=== PATIENT | male | born 1935 | race Caucasian/White ===

== ENCOUNTER 2017-05-05 06:58 | Inpatient (IN) | payer OTHER ==
[2017-04-23 09:29] VITALS: BMI 22.0
--- NOTE | 2017-04-23 10:02 | PAT Medication Instructions ---
Service Date Apr 23, 2017. Current Home Medication List No Active Prescriptions or Reported Meds Medication Instructions For Your Scheduled Surgery No Active Prescriptions or Reported Meds- Please contact PAT department if any new medications prior to surgery. If you have any questions please call us at [phone] or [phone] or [phone]
--- NOTE | 2017-04-23 10:49 | DIAGNOSTIC IMAGING REPORT ---
CHEST PREADMISSION(PA/LAT) CLINICAL HISTORY: Preoperative evaluation. COMPARISON STUDY: Chest radiograph July 08, 2015. FINDINGS: Lumbar spine fusion hardware is partially imaged on this exam. Mild elevation of the left hemidiaphragm has increased since prior exam. No pneumothorax or pleural effusion is present. There is no evidence of pulmonary edema. There is no consolidation. Cardiomediastinal silhouette is normal. IMPRESSION: 1. No acute cardiopulmonary findings. 2. Mild elevation of the left hemidiaphragm. Electronically signed by: Leander Hernández M.D. 04/23/2017 10:47 AM Dictated Date/Time: 04/23/2017 10:46 AM
[2017-04-23 10:58] LABS: BASO % 0.3 %; BASO ABS # 0.02 K/uL (0-0.2); COMPLETE YES; EOS % 0.9 %; HEMATOCRIT 42.6 % (42-52); IG% 0.3 %; LYMPH % 22.2 %; LYMPH ABS # 1.47 K/uL (1.2-3.4); MEAN CELL VOLUME 85.7 fL (80-100); MEAN CORPUSCULAR HEMOGLOBIN 28.4 pg (25-34); MEAN CORPUSCULAR HGB CONC 33.1 g/dl (32-36); MEAN PLATELET VOLUME 9.6 fL (7.4-10.4); MONO % 12.5 %; NEUT % 63.8 %; PLATELET COUNT 253 K/uL (130-400); RED BLOOD COUNT 4.97 M/uL (4.7-6.1); WHITE BLOOD COUNT 6.62 K/uL (4.8-10.8)
[2017-04-23 11:01] LABS: URINE APPEARANCE CLEAR (CLEAR); URINE BILIRUBIN NEG (NEG); URINE COLOR YELLOW; URINE NITRITE NEG (NEG); URINE PH 6.5 (4.5-7.5); URINE SPECIFIC GRAVITY 1.013 (1.000-1.030); UROBILINOGEN NEG (NEG); ZZUR CULT IF INDIC CLEAN CATCH NO
[2017-04-23 11:03] LABS: MANUAL MICROSCOPIC REQUIRED? NO; REVIEW REQ? NO
[2017-04-23 11:24] LABS: PARTIAL THROMBOPLASTIN RATIO 1.1; PROTHROMBIN TIME (PATIENT) 10.7 SECONDS (9.0-12.0)
[2017-04-23 12:02] LABS: ESTIMATED AVERAGE GLUCOSE 128 mg/dl; HA1C FLAG Normal (Normal)
[2017-04-23 12:38] LABS: CALCIUM 8.7 mg/dl (8.5-10.1); CREATININE 0.88 mg/dl (0.60-1.40)
--- NOTE | 2017-05-04 17:27 | History and Physical ---
History & Physical Date May 04, 2017. Chief Complaint Patient presents with severe end-stage DJD right knee for right total knee arthroplasty after failing attempts at conservative management including physical therapy anti-inflammatories relative rest activity modification and injections presents for right total knee arthroplasty History of Present Illness The patient is a 81 year old male with complaints of severe end-stage DJD right knee presents for right total knee Orthoplast after failing attempts at conservative management Past Medical/Surgical History Medical Problems: (1) DDD (degenerative disc disease) Allergies Coded Allergies: No Known Allergies (Unverified , 04/23/17) Home Medications No Active Prescriptions or Reported Meds Physical Examination Skin: warm/dry, no rash ENT: normal ENT inspection, pharynx normal Head: normocephalic, atraumatic Respiratory/Chest: lungs clear, normal breath sounds, no respiratory distress Cardiovascular: regular rate, rhythm, no edema, no murmur Abdomen / GI: normal bowel sounds, non tender Back: normal inspection Extremities: + pertinent finding (severe DJD right knee plan plan for right total knee arthroplasty)
[~2017-05-05] VITALS: Ht 177.8 cm; Wt 71.3 kg
[2017-05-05] VITALS (8 sets, daily range): BP systolic 98–135; BP diastolic 57–79; PULSE 69–88; TEMP 35.7–36.5; O2SAT 92–100; Ht 177.8 cm; Wt 71.3 kg
[2017-05-05] MEDS: TRANEXAMIC ACID INJ 1,000 MG in SODIUM CHLORIDE 0.9% 100ML 100 ML IV SCH ×2 (06:30→09:30)
[~2017-05-05 06:58] MED LIST: ACETAMINOPHEN 500 MG TAB PO SCH; BUPIVACAINE 0.25% 30 ML VIAL ONE; BUPIVACAINE 0.5 % 5 MG/1 ML PF 10ML VIAL ONE; CEFAZOLIN 1000MG/55 ML D5W 55 ML IV SCH; CeleBREX 200 MG CAP PO SCH; DEXAMETHASONE 4 MG TAB PO SCH; FAMOTIDINE 20 MG TAB PO SCH; GABAPENTIN 300 MG CAP PO SCH; LACTATED RINGER'S 1000ML 1,000 ML IV SCH; LACTATED RINGER'S 1000ML 500 ML IV ONE; LACTATED RINGER'S 1000ML IV SCH; METOCLOPRAMIDE HCL 10 MG TAB PO SCH; ROPIVACAINE 5MG/ML 30 ML 150 MG, BUPIVACAINE/EPINEPHR 0.5% MPF 30 ML, KETOROLAC TROMETH... INFIL SCH
--- NOTE | 2017-05-05 07:03 | History & Physical Bridge Note ---
H&P Re-Evaluation Bridge Note: I have examined the patient, reviewed the History & Physical and in the interval since the performance of the History & Physical I have noted the following changes of clinical significance: No changes noted
[2017-05-05] MEDS ORDERED: FENTANYL CITRATE INJ 50 MCG/1 ML 2 ML VIAL ONE (08:17)
[2017-05-05] MEDS ORDERED: MIDAZOLAM HCL 1 MG/ML 2ML VIAL ONE (08:17)
[2017-05-05] MEDS ORDERED: LIDOCAINE HCL 2% 2 ML VIAL (20MG/ML) ONE (08:43)
[2017-05-05] MEDS ORDERED: PROPOFOL IV EMULSION 10 MG/ML 20 ML VIAL IV ONE (08:43)
[2017-05-05] MEDS ORDERED: ONDANSETRON INJ 2 MG/ML 2 ML VIAL ONE (08:43)
[2017-05-05] MEDS ORDERED: ORTHO JOINT ANESTHETIC ONE (09:11)
[2017-05-05] MEDS ORDERED: POVIDONE-IODINE OP SOLN 30 ML BTL ONE (09:12)
[2017-05-05] MEDS ORDERED: BACITRACIN 50000 UNIT VIAL ONE (09:12)
[2017-05-05] MEDS ORDERED: ATROPINE SULFATE 0.1 MG/ML 5ML SYR IV PRN (11:00)
[2017-05-05] MEDS ORDERED: EpHEDrine SULFATE INJ 50 MG/ML AMP IV PRN (11:00)
[2017-05-05] MEDS ORDERED: ONDANSETRON INJ 2 MG/ML 2 ML VIAL IV PRN ×2 (11:00→12:45)
[2017-05-05] MEDS ORDERED: HYDROmorphone INJ 1 MG/ML SYR IV PRN (11:00)
[2017-05-05] MEDS ORDERED: MEPERIDINE HCL 25 MG/ML CARP IV PRN (11:00)
[2017-05-05] MEDS ORDERED: LABETALOL HCL IV 5 MG/ML 20ML IV PRN (11:00)
[2017-05-05] MEDS ORDERED: FENTANYL CITRATE INJ 50 MCG/1 ML 2 ML VIAL IV PRN (11:00)
[2017-05-05] MEDS ORDERED: PHENYLEPHRINE 100MCG/ML 5ML SYR ONE (11:07)
--- NOTE | 2017-05-05 11:47 | [facility] Operative Report ---
Operative Report Operative Date May 05, 2017. Pre-Operative Diagnosis Right Knee Degenerative Joint Disease Post-Operative Diagnosis Same as preop Procedure(s) Performed Right Total Knee Arthroplasty utilizing Plasencia & Nephew journey 2 patient matched total knee arthroplasty size 6 femur 6 tibia Poly-[address] Marie Electric Meter Reader Surgeon(s) Kalpesh Hutson PA-C Estimated Blood Loss 5 ml Findings Severe end-stage DJD varus alignment subchondral cystic formation unresponsive conservative therapy including physical therapy anti-inflammatories relative rest activity modification corticosteroid injections Specimens A. Right Knee Bone and Tissue Disposition Recovery Room / PACU Indications Severe end-stage DJD subchondral sclerosis subchondral cystic changes varus alignment with on the bone changes patellofemoral medial compartment noted. Description of Procedure After proper prepping and draping of the Right lower extremity anterior midline incision was made over the region of the extensor extensor mechanism after meticulous hemostasis was obtained and maintained in subcutaneous tissues a medial parapatellar incision was made The patella was subluxed lateralward the medial lateral gutter were cleaned from any hypertrophic synovitis and scar tissue of the distal femoral block was placed and the distal femoral osteotomy cut was made subsequently the chamfers anterior and posterior osteotomy cuts were made utilizing the 4-in-1 block the tibia was subsequently subluxed anteriorward medial and ateral meniscal remnants were excised in their entirety remnants of the anterior and posterior cruciate ligaments were excised in their entirety excellent exposure of the proximal tibia was obtained the tibial osteotomy guide was placed on the proximal tibial osteotomy cut was made once again the knee was irrigated with copious amounts of sterile saline solution the patella was subsequently everted lateralward thickened scar tissue around the patella was removed the patella was subsequently cut utilizing a freehand technique and was drilled prepared for final preparation and placement of patella socially flexion-extension gaps were checked and the equal and symmetric trials were placed to the appropriate femoral and tibial trials with poly-spacer being placed for equal flexion and extension gaps and full range of motion including extension to 0 and flexion to 140 the trial components after having been taken to recovery range of motion was subsequently removed meticulous hemostasis was obtained and maintained subsequently a knee block injection of joint cocktail including ropivacaine 0.5% 150 mg. Bupivacaine 0.5 % epinephrine 1-200,030 mL's toradol 30 mg dexamethasone 4 mg ketamine 10 mg clonidine 100 micrograms normal saline solution 30 mg was infiltrated into the soft tissues of the posterior knee medial lateral gutters and periosteal synovium special attention was paid to protect neurovascular structures at all times subsequently trial components having been removed the knee was irrigated with sterile saline solution. debris was removed the proximal tibia was subsequently prepared and was made ready for the placement of the tibial component tibial component was also cemented and tamped into position the femoral component was subsequently placed and cemented in the position the patellar component was subsequently cemented in position because hemostasis once again obtained and maintained wound having been thoroughly irrigated with debridement and debridement lavage was performed as well as a medial parapatellar incision closed with #1 Vicryl in interrupted fashion subcutaneous was closed with #2 Vicryl skin was closed with skin clips. PA-C was necessary for prepping and drapping as well as wound closure of deep fascia Sub cutaneous tissue and skin and was necessary for the case. A sterile compressive dressing was placed patient was taken to recovery in stable condition of report dictated by Frank I attest to the content of the Intraoperative Record and any orders documented therein. Any exceptions are noted below. I attest to the content of the Intraoperative Record and any orders documented therein. Any exceptions are noted below.
[2017-05-05] MEDS ORDERED: KETOROLAC TROMETHAMINE 15 MG/ML VIAL IV. PRN (12:45)
[2017-05-05] MEDS ORDERED: SOD PHOSPHATE/SOD BIPHOSPHATE ENEMA 132 ML BTL PR PRN (12:45)
[2017-05-05] MEDS ORDERED: BISACODYL 10 MG SUPP PR PRN (12:45)
[2017-05-05] MEDS ORDERED: ZOLPIDEM TARTRATE 5 MG TAB PO PRN (12:45)
[2017-05-05] MEDS ORDERED: MoRPHine SULFATE 2 MG/ML CARP IV PRN (12:45)
[2017-05-05] MEDS ORDERED: ALUMINUM/MAGNESIUM/SIMETH (MAALOX MAX) 30 ML UDC PO PRN (12:45)
[2017-05-05] MEDS ORDERED: MAGNESIUM HYDROXIDE SUSP 30 ML UDC PO PRN (12:45)
--- NOTE | 2017-05-05 13:28 | DIAGNOSTIC IMAGING REPORT ---
RIGHT KNEE 1 OR 2 VIEWS ROUTINE CLINICAL HISTORY: AP/LATERAL IN PACU RIGHT KNEE Right joint replacement COMPARISON: None. DISCUSSION: Right total knee arthroplasty. Good contact between prosthetic and underlying bone. Surgical drains are in position. Expected soft tissue postoperative change. IMPRESSION: Anatomic alignment status post total right knee arthroplasty. The above report was generated using voice recognition software. It may contain grammatical, syntax or spelling errors. Electronically signed by: Kalpesh Pena M.D. 05/05/2017 1:27 PM Dictated Date/Time: 05/05/2017 1:26 PM
--- NOTE | 2017-05-05 13:41 | Anesthesiology Progress Note ---
Anesthesia Post Op Note Date & Time May 05, 2017 at 13:40 Vital Signs Pain Intensity: 0 Vital Signs Past 12 Hours Date Time Temp Pulse Resp B/P (MAP) Pulse Ox O2 Delivery O2 Flow Rate FiO2 05/05/17 13:25 36.7 81 16 97/62 97 Nasal Cannula 2 05/05/17 13:10 81 16 99/65 97 Nasal Cannula 2 05/05/17 13:00 83 16 94/64 97 Nasal Cannula 2 05/05/17 12:50 82 16 99/61 98 Oxymask 10 05/05/17 12:40 81 16 94/61 99 Oxymask 10 05/05/17 12:32 36.8 83 16 100/61 99 Oxymask 10 05/05/17 08:13 36.5 77 18 135/77 96 Room Air Notes Mental Status: alert / awake / arousable, participated in evaluation Pt Amnestic to Procedure: Yes Nausea / Vomiting: adequately controlled Pain: adequately controlled Airway Patency, RR, SpO2: stable & adequate BP & HR: stable & adequate Hydration State: stable & adequate Neuraxial Anesthesia: was administered, sensory block is resolving Anesthetic Complications: no major complications apparent
[2017-05-05] MEDS ORDERED: MoRPHine SULFATE 4 MG/ML 1 ML CARP\\VIAL IV PRN (14:00)
[2017-05-05] MEDS ORDERED: MoRPHine SULFATE 10 MG/ML CARP/VIAL IV PRN (14:00)
[2017-05-05] MEDS: ACETAMINOPHEN 500 MG TAB PO SCH ×2 (14:52→21:42)
[2017-05-05] MEDS: D5W AND 1/2NSS + 20MEQ KCL 1,000 ML IV SCH (14:52)
[2017-05-05] MEDS: CEFAZOLIN IV 1,000 MG in DEXTROSE 5% 50ML 50 ML IV SCH (18:35)
[2017-05-05] MEDS: ASPIRIN 81 MG ECTAB PO SCH (20:45)
[2017-05-05] MEDS: OXYCODONE HCL 10 MG TABCR (OXYCONTIN) PO SCH (20:45)
[2017-05-05] MEDS: DOCUSATE SODIUM 100 MG CAP PO SCH (20:45)
[2017-05-05] MEDS: SENNA 8.6 MG TAB PO SCH (20:46)
[2017-05-06] VITALS (7 sets, daily range): BP systolic 94–122; BP diastolic 54–72; PULSE 59–73; TEMP 36.4–36.9; O2SAT 94–97
[2017-05-06] MEDS: D5W AND 1/2NSS + 20MEQ KCL 1,000 ML IV SCH ×2 (00:12→11:28)
[2017-05-06] MEDS: CEFAZOLIN IV 1,000 MG in DEXTROSE 5% 50ML 50 ML IV SCH (01:47)
[2017-05-06 05:52] LABS: MEAN CELL VOLUME 86.4 fL (80-100); MEAN CORPUSCULAR HGB CONC 32.4 g/dl (32-36); MEAN PLATELET VOLUME 9.5 fL (7.4-10.4); PLATELET COUNT 239 K/uL (130-400); WHITE BLOOD COUNT 14.19 K/uL (4.8-10.8)
[2017-05-06] MEDS: ACETAMINOPHEN 500 MG TAB PO SCH ×3 (05:57→21:50)
[2017-05-06 06:01] LABS: PROTHROMBIN TIME (PATIENT) 11.1 SECONDS (9.0-12.0)
[2017-05-06 06:27] LABS: BUN/CREATININE RATIO 17.9 (10-20); CALCIUM 8.2 mg/dl (8.5-10.1); POTASSIUM 4.2 mmol/L (3.5-5.1)
--- NOTE | 2017-05-06 06:52 | Orthopedic Progress Note ---
Orthopedic Progress Note Date of Service May 06, 2017. Subjective Post OP Day: 1 (s/p Right TKA) Reports: feeling well, pain controlled w PO medications, Denies: complaints, chest pain, SOB, nausea / vomiting, light headedness, calf pain Objective calves soft nontender, N/V intact, capillary refill less than 2 sec., dressing C /D/I, A&O x3, toes mobile, hemovac drainage (125cc/8 hours) Date Time Temp Pulse Resp B/P (MAP) Pulse Ox O2 Delivery O2 Flow Rate FiO2 05/06/17 03:14 36.6 73 16 96/54 (68) 96 Room Air 05/06/17 00:05 Room Air 05/05/17 23:17 36.5 69 16 114/71 (85) 92 Room Air 05/05/17 18:26 35.7 88 18 122/79 (93) 96 Room Air 05/05/17 15:45 36.3 79 16 102/64 (77) 100 Nasal Cannula 2.0 05/05/17 15:30 Nasal Cannula 2.0 05/05/17 14:44 71 18 111/67 (82) 98 Nasal Cannula 2.0 05/05/17 14:15 70 16 100/62 (75) 96 Nasal Cannula 2.0 05/05/17 14:12 96 Nasal Cannula 2.0 05/05/17 14:06 96 Nasal Cannula 2.0 05/05/17 13:45 36.5 81 18 98/57 (71) 96 Nasal Cannula 2.0 05/05/17 13:25 36.7 81 16 97/62 97 Nasal Cannula 2 05/05/17 13:10 81 16 99/65 97 Nasal Cannula 2 05/05/17 13:00 83 16 94/64 97 Nasal Cannula 2 05/05/17 12:50 82 16 99/61 98 Oxymask 10 05/05/17 12:40 81 16 94/61 99 Oxymask 10 05/05/17 12:32 36.8 83 16 100/61 99 Oxymask 10 05/05/17 08:13 36.5 77 18 135/77 96 Room Air Laboratory Results 24 Hours: Test 05/06/17 05:39 Hematocrit 38.0 % Hemoglobin 12.3 g/dL Prothromb Time International Ratio 1.0 Prothrombin Time 11.1 SECONDS Assessment & Plan Assessment: POD #1 s/p Right TKA -pt/ot -dvt proph with [facility]/scd/asa -plan for d/c home with HHPT when stable Discharge Planning Discharge Planning: home with home health DVT Prophylaxis: TEDs, SCDs, ASA Therapy: Physical Therapy
--- NOTE | 2017-05-06 06:53 | Discharge Instructions ---
Discharge Instructions Date of Service May 06, 2017. Admission Reason for Admission: Right Knee Osteoarthritis Discharge Discharge Diagnosis / Problem: right total knee replacement Discharge Goals Goal(s): Decrease discomfort, Improve function, Increase independence Activity Recommendations Activity Limitations: as noted below Weightbearing Status: Right weightbearing (as tolerated) . Instructions / Follow-Up Instructions / Follow-Up ACTIVITY RECOMMENDATIONS: SELF CARE INSTRUCTIONS AFTER TOTAL KNEE REPLACEMENT A. You may need to continue a physical therapy program after discharge from the hospital. There are several options available to you. Your doctor will assist you in selecting the best one for you. 1. An out-patient facility 2 to 3 times a week for therapy or home therapy. 2. Continue working on all exercises taught to you in the hospital. Your goals should be to increase bending of your knee to 90 degrees and beyond and to fully straighten your knee. B. You may progress at your own pace from walking with a walker or crutches to a cane; then to no assistive devices. C. Make walking a part of your daily routine. Be up as much as comfortable with rest periods throughout the day. Rest with leg elevation is very important. Use the ice wrap frequently for the first 3-4 weeks. D. There are no restrictions on activities. You may ride in a car, shop, participate in oil field tester and all social activities. E. Wear the long elastic stockings (SHERYL hose) 20 hours a day for 2 weeks after surgery. They can be removed several times a day for laundering and for a bath. F. You may shower, no tub baths until cleared by your doctor. SPECIAL CARE INSTRUCTIONS: VERY IMPORTANT TO READ AND REVIEW A. There are a few signs you need to watch for after you are home. Call [facility] if you notice any of the followin. Increased severe knee pain. Some pain is expected especially when you exercise. 2. Increased swelling in your leg or knee; pain or swelling of the calf muscle in either lower leg. 3. Any fluid drainage from the incision. 4. Shortness of breath or chest pain. B. Please call [facility] at if you have any concerns or questions about your operation or recovery. The doctor or his nurse will return your call promptly. C. You must take antibiotics before dental work, bladder, bowel or other surgery. Your doctor will provide you with a permanent care to carry describing this precaution. IMPORTANT: * REMEMBER TO TAKE ASPIRIN, 81 MG, TWICE DAILY FOR 4 WEEKS UNLESS OTHERWISE DIRECTED. THIS IS YOUR BLOOD THINNER. * HIGH RISK PATIENTS MAY BE PRESCRIBED A STRONGER BLOOD THINNER. THIS WILL BE PROVIDED AT DISCHARGE. * CALL IF INCREASED PAIN, REDNESS, DRAINAGE OR FEVER GREATER THAT 101. * WEAR SHERYL HOSE 20 HOURS PER DAY FOR 2 WEEKS. * DERMABOND Prineo- This is a mesh tape dressing that is covered with glue. It should remain in place until the incision is properly healed, usually 10-14 days. This dressing is designed to naturally slough off. You may trim the excess mesh tape as it peels off. Incision may be briefly wet in a shower. Dry immediately by blotting with a clean, dry towel. Do not bath or swim until instructed by your doctor. Do not scratch, rub, or pick at the dressing. Do not apply any topical ointments or lotions until dressing is completely removed and/or instructed by your doctor. There may be a small piece of suture material at one end of your incision. Do not pull or trim this. If it is bothersome or catching on clothing, you may cover it with a band-aid. FOLLOW UP VISIT: If appointment is not already scheduled: Please call [facility] to make a follow-up appointment for 2 weeks after your surgery at . Current Hospital Diet Patient's current hospital diet: Regular Diet Discharge Diet Recommended Diet: Regular Diet Procedures Procedures Performed: Right Total Knee Arthroplasty utilizing Plasencia & Nephew journey 2 patient matched total knee arthroplasty size 6 femur 6 tibia Poly-35 oval patella Pending Studies Studies pending at discharge: no Laboratory Results Hemoglobin A1c Test 04/23/17 10:09 Range/Units Estimated Average Glucose 128 mg/dl Hemoglobin A1c 6.1 H 4.5-5.6 % Medical Emergencies . Who to Call and When: Medical Emergencies: If at any time you feel your situation is an emergency, please call 911 immediately. . Non-Emergent Contact Non-Emergency issues call your: Primary Care Provider, Surgeon . "Provider Documentation" section prepared by Kalpesh Hutson. . VTE Core Measure Inpt VTE Proph given/why not?: Other Anticoagulation (ASA 81mg po bid x 1 month ), TSil [place], SCD's [place] Drug Monitoring Program Search Results: patient reviewed within database, no issues identified
[2017-05-06] MEDS: MULTIVITAMIN TAB PO SCH (08:54)
[2017-05-06] MEDS: DOCUSATE SODIUM 100 MG CAP PO SCH ×2 (08:54→20:42)
[2017-05-06] MEDS: ASPIRIN 81 MG ECTAB PO SCH ×2 (08:54→20:42)
[2017-05-06] MEDS: PANTOprazole SOD 40 MG TAB PO SCH (08:54)
[2017-05-06] MEDS: OXYCODONE HCL 10 MG TABCR (OXYCONTIN) PO SCH ×2 (08:54→20:43)
--- NOTE | 2017-05-06 09:23 | Anesthesiology Progress Note ---
Anesthesia Post Op Note Date & Time May 06, 2017 at 09:23 Vital Signs Pain Intensity: 1.0 Vital Signs Past 12 Hours Date Time Temp Pulse Resp B/P (MAP) Pulse Ox O2 Delivery O2 Flow Rate FiO2 05/06/17 08:53 64 113/71 (85) 05/06/17 08:00 96 Room Air 05/06/17 07:03 36.4 59 16 94/56 (69) 97 Room Air 05/06/17 03:14 36.6 73 16 96/54 (68) 96 Room Air 05/06/17 00:05 Room Air 05/05/17 23:17 36.5 69 16 114/71 (85) 92 Room Air Notes Mental Status: alert / awake / arousable, participated in evaluation Pt Amnestic to Procedure: Yes Nausea / Vomiting: adequately controlled Pain: adequately controlled Airway Patency, RR, SpO2: stable & adequate BP & HR: stable & adequate Hydration State: stable & adequate Neuraxial Anesthesia: sensory block resolved Anesthetic Complications: no major complications apparent
[2017-05-06] MEDS: OXYCODONE HCL IR 5 MG TAB (IMMEDIATE RELEASE) PO PRN ×2 (16:15→20:12)
[2017-05-06] MEDS: CeleBREX 200 MG CAP PO SCH (20:41)
[2017-05-06] MEDS: SENNA 8.6 MG TAB PO SCH (21:04)
[2017-05-07] MEDS: ACETAMINOPHEN 500 MG TAB PO SCH ×2 (05:40→14:11)
[2017-05-07 06:41] VITALS: BP 117/69; PULSE 82; TEMP 36.7; O2SAT 95
--- NOTE | 2017-05-07 07:26 | Orthopedic Progress Note ---
Orthopedic Progress Note Date of Service May 07, 2017. Subjective Post OP Day: 2 Reports: feeling well, pain controlled w PO medications, Denies: complaints, chest pain, SOB, nausea / vomiting, light headedness, calf pain Objective calves soft nontender, N/V intact, capillary refill less than 2 sec., incision C /D/I, A&O x3, toes mobile Date Time Temp Pulse Resp B/P (MAP) Pulse Ox O2 Delivery O2 Flow Rate FiO2 05/07/17 06:41 36.7 82 16 117/69 (85) 95 Room Air 05/07/17 00:20 Room Air 05/06/17 22:52 36.9 66 16 111/72 (85) 94 Room Air 05/06/17 16:00 Room Air 05/06/17 15:33 36.4 65 18 122/63 (82) 97 Room Air 05/06/17 11:50 36.5 61 16 106/65 (79) 97 Room Air 05/06/17 08:53 64 113/71 (85) 05/06/17 08:00 96 Room Air Assessment & Plan Assessment: POD #2 s/p Right TKA -pt/ot -dvt proph with [facility]/scd/asa -plan for d/c home with HHPT when stable, likely after PT today Discharge Planning Discharge Planning: home with home health DVT Prophylaxis: TEDs, SCDs, ASA Therapy: Physical Therapy
[2017-05-07] MEDS ORDERED: ASPEC81 PO (07:29)
[2017-05-07] MEDS ORDERED: ACET-24 PO (07:29)
[2017-05-07] MEDS ORDERED: RXC5 PO (07:29)
[2017-05-07] MEDS ORDERED: CLB200 PO (07:29)
[2017-05-07] MEDS ORDERED: CLC100 PO (07:29)
[2017-05-07] MEDS ORDERED: ONDA8TAB6 PO (07:29)
[2017-05-07] MEDS: OXYCODONE HCL IR 5 MG TAB (IMMEDIATE RELEASE) PO PRN (07:30)
--- NOTE | 2017-05-07 07:34 | Discharge Summary ---
Orthopedic Discharge Summary Admission Date/Reason May 05, 2017 at 08:30 Right Knee Osteoarthritis. Discharge Date/Disposition May 07, 2017 Home with services Diagnosis Principal Diagnosis: right knee osteoarthritis Procedure(s) Performed Right Total Knee Arthroplasty utilizing Plasencia & Nephew journey 2 patient matched total knee arthroplasty size 6 femur 6 tibia Poly-35 oval patella Consultations NONE Medication Reconciliation New Medications: Ondansetron Hcl (Zofran) 8 Mg Tab 8 MG PO Q8 PRN for Nausea, #20 TAB Acetaminophen (Sb Non-Aspirin Extra Stre) 500 Mg Tab 1000 MG PO Q8H, #63 TAB Aspirin (Aspirin EC Low Dose) 81 Mg Ectab 81 MG PO BID for 30 Days, #60 TAB Celecoxib (Celebrex) 200 Mg Cap 200 MG PO BID for 30 Days, #60 CAP Docusate Sodium (Docusate Sodium) 100 Mg Cap 100 MG PO BID for 10 Days, #20 CAP Oxycodone HCl (Oxycodone HCl) 5 Mg Tab 5-10 MG PO Q4H PRN for Pain, #60 TAB Admission Physical Exam As per Admitting History & Physical. Hospital Course Patient was a same day admission after undergoing a successful right TKA. he tolerated the procedure well. Post-operatively, his activity was progressed and well tolerated. Please refer to daily progress notes and PT notes for complete details. After exam on 05/07/17, patient felt to be stable for discharge home with home health PT. Patient will f/u in the office in 2 weeks for further evaluation including x-rays and incision check, sooner if having any issues or concerns. Below are pertinent labs/studies during their hospital stay: Last Resulted CBC 05/06/17 05:39 Last Resulted BMP 05/06/17 05:39 Last Vital Signs Documentation Date Time Temp Pulse Resp B/P (MAP) Pulse Ox O2 Delivery O2 Flow Rate FiO2 05/07/17 06:41 36.7 82 16 117/69 (85) 95 Room Air 05/05/17 15:45 2.0 Discharge Instructions ACTIVITY RECOMMENDATIONS: SELF CARE INSTRUCTIONS AFTER TOTAL KNEE REPLACEMENT A. You may need to continue a physical therapy program after discharge from the hospital. There are several options available to you. Your doctor will assist you in selecting the best one for you. 1. An out-patient facility 2 to 3 times a week for therapy or home therapy. 2. Continue working on all exercises taught to you in the hospital. Your goals should be to increase bending of your knee to 90 degrees and beyond and to fully straighten your knee. B. You may progress at your own pace from walking with a walker or crutches to a cane; then to no assistive devices. C. Make walking a part of your daily routine. Be up as much as comfortable with rest periods throughout the day. Rest with leg elevation is very important. Use the ice wrap frequently for the first 3-4 weeks. D. There are no restrictions on activities. You may ride in a car, shop, participate in knotter hand and all social activities. E. Wear the long elastic stockings (SHERYL hose) 20 hours a day for 2 weeks after surgery. They can be removed several times a day for laundering and for a bath. F. You may shower, no tub baths until cleared by your doctor. SPECIAL CARE INSTRUCTIONS: VERY IMPORTANT TO READ AND REVIEW A. There are a few signs you need to watch for after you are home. Call [facility] if you notice any of the followin. Increased severe knee pain. Some pain is expected especially when you exercise. 2. Increased swelling in your leg or knee; pain or swelling of the calf muscle in either lower leg. 3. Any fluid drainage from the incision. 4. Shortness of breath or chest pain. B. Please call [facility] at if you have any concerns or questions about your operation or recovery. The doctor or his nurse will return your call promptly. C. You must take antibiotics before dental work, bladder, bowel or other surgery. Your doctor will provide you with a permanent care to carry describing this precaution. IMPORTANT: * REMEMBER TO TAKE ASPIRIN, 81 MG, TWICE DAILY FOR 4 WEEKS UNLESS OTHERWISE DIRECTED. THIS IS YOUR BLOOD THINNER. * HIGH RISK PATIENTS MAY BE PRESCRIBED A STRONGER BLOOD THINNER. THIS WILL BE PROVIDED AT DISCHARGE. * CALL IF INCREASED PAIN, REDNESS, DRAINAGE OR FEVER GREATER THAT 101. * WEAR SHERYL HOSE 20 HOURS PER DAY FOR 2 WEEKS. * DERMABOND Prineo- This is a mesh tape dressing that is covered with glue. It should remain in place until the incision is properly healed, usually 10-14 days. This dressing is designed to naturally slough off. You may trim the excess mesh tape as it peels off. Incision may be briefly wet in a shower. Dry immediately by blotting with a clean, dry towel. Do not bath or swim until instructed by your doctor. Do not scratch, rub, or pick at the dressing. Do not apply any topical ointments or lotions until dressing is completely removed and/or instructed by your doctor. There may be a small piece of suture material at one end of your incision. Do not pull or trim this. If it is bothersome or catching on clothing, you may cover it with a band-aid. FOLLOW UP VISIT: If appointment is not already scheduled: Please call [facility] [place] to make a follow-up appointment for 2 weeks after your surgery at .
[2017-05-07 07:53] VITALS: O2SAT 95
[2017-05-07] MEDS: PANTOprazole SOD 40 MG TAB PO SCH (08:42)
[2017-05-07] MEDS: OXYCODONE HCL 10 MG TABCR (OXYCONTIN) PO SCH (08:42)
[2017-05-07] MEDS: MULTIVITAMIN TAB PO SCH (08:43)
[2017-05-07] MEDS: DOCUSATE SODIUM 100 MG CAP PO SCH (09:19)
[2017-05-07] MEDS: ASPIRIN 81 MG ECTAB PO SCH (09:19)
[2017-05-07] MEDS: CeleBREX 200 MG CAP PO SCH (09:20)
[2017-05-07 09:27] VITALS: BP 117/69; PULSE 82; TEMP 36.7; O2SAT 95
== END 2017-05-07 14:32 | disposition home health service (06) | DRG 470 ==
LOC: C.ACU 06:58 → C.3E 08:30 → ENRESERV 12:54
PROVIDERS: ADMIT Orthopaedic Surgery; ATTEND Orthopaedic Surgery
PROC: 0SRC0J9 Replacement of Right Knee Joint with Synthetic Substitute, Cemented, Open Approach (ICD-10-PCS; principal; 2017-05-05 09:45)
DX: M17.11 Unilateral primary osteoarthritis, right knee (principal)

== ENCOUNTER 2017-07-01 14:56 | Emergency (ER) | payer OTHER ==
[~2017-07-01] VITALS: Ht 177.8 cm; Wt 70.2 kg
[~2017-07-01 14:56] MED LIST changes: +ACET-24 PO; -ACETAMINOPHEN 500 MG TAB PO SCH; +ASPEC81 PO; -BUPIVACAINE 0.25% 30 ML VIAL ONE; -BUPIVACAINE 0.5 % 5 MG/1 ML PF 10ML VIAL ONE; -CEFAZOLIN 1000MG/55 ML D5W 55 ML IV SCH; +CLB200 PO; +CLC100 PO; -CeleBREX 200 MG CAP PO SCH; -DEXAMETHASONE 4 MG TAB PO SCH; -FAMOTIDINE 20 MG TAB PO SCH; -GABAPENTIN 300 MG CAP PO SCH; -LACTATED RINGER'S 1000ML 1,000 ML IV SCH; -LACTATED RINGER'S 1000ML 500 ML IV ONE; -LACTATED RINGER'S 1000ML IV SCH; -METOCLOPRAMIDE HCL 10 MG TAB PO SCH; +ONDA8TAB6 PO; -ROPIVACAINE 5MG/ML 30 ML 150 MG, BUPIVACAINE/EPINEPHR 0.5% MPF 30 ML, KETOROLAC TROMETH... INFIL SCH; +RXC5 PO
[2017-07-01] MEDS ORDERED: PRLSR20 PO (15:08)
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
[2017-07-01] MEDS ORDERED: DIPHTHERIA/TETANUS/PERTUSSIS 0.5 ML SYR/VIAL IM. ONE (15:15)
[2017-07-01 15:18] VITALS: TEMP 36.5; Ht 177.8 cm; Wt 70.2 kg
[2017-07-01 15:40] LABS: BASO % 0.1 %; BASO ABS # 0.01 K/uL (0-0.2); COMPLETE YES; EOS % 0.3 %; HEMATOCRIT 36.3 % (42-52); IG% 0.1 %; LYMPH % 20.8 %; LYMPH ABS # 1.79 K/uL (1.2-3.4); MEAN CELL VOLUME 83.3 fL (80-100); MEAN CORPUSCULAR HEMOGLOBIN 27.3 pg (25-34); MEAN CORPUSCULAR HGB CONC 32.8 g/dl (32-36); MEAN PLATELET VOLUME 9.2 fL (7.4-10.4); MONO % 10.8 %; NEUT % 67.9 %; PLATELET COUNT 291 K/uL (130-400); RED BLOOD COUNT 4.36 M/uL (4.7-6.1); WHITE BLOOD COUNT 8.62 K/uL (4.8-10.8)
[2017-07-01 15:43] VITALS: O2SAT 94
[2017-07-01 15:54] LABS: PARTIAL THROMBOPLASTIN RATIO 1.1; PROTHROMBIN TIME (PATIENT) 10.6 SECONDS (9.0-12.0)
--- NOTE | 2017-07-01 15:58 | DIAGNOSTIC IMAGING REPORT ---
CHEST ONE VIEW PORTABLE HISTORY: 81 years-old Male EVALUATE FOR TRAUMA/INJURY acute chest injury COMPARISON: Chest radiograph 04/23/2017 TECHNIQUE: Portable upright AP view the chest FINDINGS: Cardiomediastinal and hilar silhouettes are within normal limits. Moderate left hemidiaphragmatic elevation is again noted with linear left basilar subsegmental opacities suggesting atelectasis or scarring. Lungs are otherwise clear without pneumothorax, pleural effusion or lobar airspace consolidation. Degenerative changes involve the shoulders and spine. Fusion hardware of the lumbar spine is partially imaged. Bones appear grossly intact. IMPRESSION: 1. No acute cardiopulmonary process. 2. Moderate left hemidiaphragmatic elevation. The above report was generated using voice recognition software. It may contain grammatical, syntax or spelling errors. Electronically signed by: Kai Broderick M.D. 07/01/2017 3:56 PM Dictated Date/Time: 07/01/2017 3:55 PM
--- NOTE | 2017-07-01 16:03 | DIAGNOSTIC IMAGING REPORT ---
KNEE 1 OR 2 VIEWS ROUTINE CLINICAL HISTORY: Right knee pain COMPARISON: 04/23/2014 DISCUSSION: There are postsurgical changes of a total right knee arthroplasty. No acute fractures are visualized. There is anterior soft tissue swelling. IMPRESSION: Soft tissue swelling. Postsurgical change. No acute fractures identified. Electronically signed by: Blake Khalil M.D. 07/01/2017 4:01 PM Dictated Date/Time: 07/01/2017 4:01 PM
[2017-07-01 16:08] LABS: BUN/CREATININE RATIO 16.6 (10-20); CALCIUM 8.9 mg/dl (8.5-10.1); POTASSIUM 3.8 mmol/L (3.5-5.1)
[2017-07-01] MEDS ORDERED: XYLOCAINE 1%/SOD BICARB 20 ML VIAL INFIL ONE (16:57)
[2017-07-01] MEDS ORDERED: HYDROCODONE/ACETAMOPHEN 5/325MG TAB PO STA (16:57)
[2017-07-01] MEDS ORDERED: CEPHALEXIN MONOHYDRATE 250 MG CAP PO ONE (17:00)
[2017-07-01] MEDS ORDERED: LIDOCAINE/EPINEPHRINE 1% 20 ML VIAL INFIL ONE (17:00)
[2017-07-01] MEDS ORDERED: CEPH500C PO (17:22)
[2017-07-01 18:22] VITALS: BP 122/82; PULSE 87; O2SAT 96
--- NOTE | 2017-07-04 13:46 | EDITING REQUIRED CODING QUERY ---
CODING QUERY Dr. Resendiz, To promote full compliance with coding requirements relating to patient care, provider participation is requested in all cases of midlevel provider uncertainty. Please assist us with the question(s) below: Coding Question(s): Per report, patient has a knee laceration. Per procedure section on report, patient has scalp laceration. Please clarify location of Laceration(s). Physician's Response(s): Thank you Reji [place] Principal Diagnosis: "_that condition established after study, to be chiefly responsible for occasioning the admission of the patient to the hospital for care." Co-Existing Principal Diagnosis: "_when two or more diagnoses equally meet the criteria for principal diagnosis as determined by the circumstances of admission, diagnostic work up, and/or therapy provided, and the Alphabetic Index, Tabular List, or another coding guideline does not provide sequencing direction, any one of the diagnoses may be sequenced first." "When the physician has documented what appears to be a current diagnosis in the body of the record, but has not included the diagnosis in the final diagnostic statement, the physician should be asked whether the diagnosis should be added." (Source Coding [facility] 2 QTR90. p3-4)
== END 2017-07-01 18:24 | disposition home or self-care (01) ==
LOC: EDBD 14:56 → C.EDB 14:58
DX: S81.011A Laceration without foreign body, right knee, initial encounter (principal); V53.5XXA Driver of pick-up truck or van injured in collision with car, pick-up truck or van in traffic accident, initial encounter; Y93.89 Activity, other specified; Y99.8 Other external cause status; Z96.651 Presence of right artificial knee joint; Z23 Encounter for immunization